=== PATIENT | male | born 1990 | race Two or more races ===

== ENCOUNTER 2023-03-14 15:24 | Emergency (ER) | payer SELFPAY ==
[~2023-03-14] VITALS: Ht 182.9 cm; Wt 71.3 kg
[2023-03-14 15:40] VITALS: BP 110/74; PULSE 88; RESP 18; O2SAT 97
[2023-03-14] MEDS ORDERED: BENZ100C97 PO (18:30)
[2023-03-14] MEDS ORDERED: LORA10CA PO (18:30)
[2023-03-14 18:46] LABS: COVID19 ANTIGEN SOFIA FIA NEGATIVE (NEGATIVE); Rapid Influenza A Negative (Negative); Rapid Influenza B Negative (Negative)
== END 2023-03-14 20:18 | disposition home or self-care (01) ==
LOC: ER 15:24
DX: R09.82 Postnasal drip (principal); Z20.822 Contact with and (suspected) exposure to COVID-19
CPT/HCPCS: 36415; 71045; 87426; 87804